=== PATIENT | female | born 2000 | race Caucasian/White ===

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

== ENCOUNTER → 2022-09-14 | Outpatient (REF) ==
[2022-09-14 10:43] LABS: RSV AMPLIFICATION NEGATIVE (NEGATIVE)
== END ==
LOC: M EMP 09:20
PROVIDERS: ATTEND Family Medicine
DX: Z20.828 Contact with and (suspected) exposure to other viral communicable diseases (principal)

== ENCOUNTER → 2024-06-08 | Outpatient (CLI) | payer OTHER | LOC: M RAD 06:40 | PROVIDERS: ATTEND Surgery | DX: Q64.4 Malformation of urachus (principal) ==